=== PATIENT | male | born 2000 | race Hispanic/Latino ===

== ENCOUNTER 2023-11-14 15:41 | Emergency (ER) | payer SELFPAY ==
[2023-11-14 15:45] VITALS: BP 157/94
--- NOTE | 2023-11-14 18:41 | ED.MUSCINJ ---
HPI-Injury
General
Chief Complaint: Musculo-Skeletal Complaint
Source: patient
Exam Limitations: none
Time Seen by Provider: 11/14/23 16:22
Nursing documentation reviewed up to this point in time: agreed with
History of Present Illness-Injury
Is this injury a work related problem?: No
Is pt an associate of [facility]/[place]?: No
Initial Injury comments:
Patient to ED with complaint of left ankle pain. States he injured ankle approx 3 weeks ago while playing soccer. 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 No record found of him being here. He is wearing a
tall orthoboot. Brought self to ED for eval.
Past History
Past History
ED Past Medical History: None
ED Past Surgical History: None
Review of Systems
Review of Systems
Allergies reviewed?: Yes
All Other Systems: ROS reviewed and negative except as documented in HPI and ROS
Constitutional: Reports no symptoms
Musculoskeletal: Reports joint pain (pain to left lat ankle)
Skin: Reports no symptoms
Neurological: Reports no symptoms
Psychiatric: Reports no symptoms
Musculoskeletal Injury Exam
Musculoskeletal Injury Exam
Left Lateral Ankle:
Pain with Movement?: Moderate
Tender to palpation?: Moderate
Soft tissue swelling?: Moderate
External deformity and angulation?: None
Joint effusion?: None
Contusion?: None
Hematoma-local bleeding into tissue?: Moderate
Strain- Sprain- Tear (Connective tissue injury)?: Moderate
Crepitus with movement?: No
Joint instability?: No
Malalignment/deformity?: No
Range of motion: Limited
Distal skin color and temperature: normal-warm & good color
Capillary Refill: normal
Normal distal neurovascular exam?: No
Peripheral Pulses: posterior tibial (left): 3+ and dorsalis pedis (left): 3+
Phy Exam
General Physical Exam
General Presentation: well appearing and no apparent distress
General age: appears stated age
General Skin: warm and dry
General Habitus: normal
General Mental: alert
Musculoskeletal Exam
Musculoskeletal Exam: neuro vasc intact and other (Achilles intact. No tenderness base of 5th, proximal tib/fib)
Skin Exam
Skin Exam: normal color, warm/dry and no rash
Psychiatric Exam
Psychiatric Exam: normal mood/affect
Injury Course
Orders/Labs/Results
Orders:
Orders
11/14/23 17:35
Ankle, left 3 view CR [CR Ankle - Left Min 3 Views ] Urgent
Comment:
Reason For Exam: trauma
*Radiology
Radiology exam reviewed: preliminary read by ED provider (distal fib fx)
*Pulse Oximetry
Patient hypoxic: no
*Critical Care Note
Total Time (30-74mins, 75-104mins- exclusive of procedures): Not Applicable
ED Attending Note
-
Portions of this chart may have been created with voice recognition software.� Occasional wrong word or��sound alike� substitutions may have occurred due to the inherent limitations of voice recognition software.
Discharge Plan
Departure
Patient Disposition: Home (Routine Discharge)
Date of Disposition: 11/14/23
Time of Disposition: 18:45
Patient with high blood pressure during this ER visit?: No
Condition: Good
Covid-19: Not Applicable
Discharge Problem:
Fracture of distal end of fibula
Instructions: Ankle Fracture (DC), Ibuprofen, Walking Boot, Using Cold for Pain
Referrals:
Luis Alberto Murphy MD [Active] - Call in 1-3 days for appt
NONE,* [Family Provider] -
Interventions
Interventions:
*Risk Screen - Suicide Last Done: 11/14/23 15:51
*General Assessment Last Done: 11/14/23 15:51
*Neglect/Abuse Screening Last Done: 11/14/23 15:51
*Nursing Disposition Last Done: 11/14/23 19:23
ED-Musculoskeletal Assessment Last Done: 11/14/23 18:08
Discharge Date and Time
Discharge Date/Time: 11/14/23 19:24
Print Language: VIET[place]ESE
== END 2023-11-14 19:24 | disposition home or self-care (01) ==
LOC: EMR 15:41
PROVIDERS: EMERGENCY PHYSICIAN Emergency Medicine
DX: S82.832A Other fracture of upper and lower end of left fibula, initial encounter for closed fracture (principal); S90.02XA Contusion of left ankle, initial encounter; M25.572 Pain in left ankle and joints of left foot; X58.XXXA Exposure to other specified factors, initial encounter; Y93.66 Activity, soccer
CPT/HCPCS: 99283; 73610

== ENCOUNTER → 2023-12-18 16:09 | Outpatient (REF) | payer OTHER, SELFPAY | LOC: RAD 16:09 | PROVIDERS: ATTENDING PHYSICIAN Orthopaedic Surgery | DX: S82.822A Torus fracture of lower end of left fibula, initial encounter for closed fracture (principal) | CPT/HCPCS: 73610 ==

== ENCOUNTER 2024-01-11 06:16 | Outpatient (RCR) | payer OTHER, SELFPAY | END 2024-01-11 23:59 | disposition home or self-care (01) | LOC: RPT 06:16 | PROVIDERS: ATTENDING PHYSICIAN Orthopaedic Surgery | DX: S82.822D Torus fracture of lower end of left fibula, subsequent encounter for fracture with routine healing (principal); X58.XXXD Exposure to other specified factors, subsequent encounter | CPT/HCPCS: 97110; 97112; 97116; 97163; 97535 ==

== ENCOUNTER → 2024-01-26 09:40 | Outpatient (REF) | payer OTHER, SELFPAY | LOC: CLINIC 09:40 | PROVIDERS: ATTENDING PHYSICIAN Nurse Practitioner Adult Health | DX: S82.822A Torus fracture of lower end of left fibula, initial encounter for closed fracture (principal) | CPT/HCPCS: 73610 ==

== ENCOUNTER 2024-02-08 06:50 | Outpatient (RCR) | payer OTHER, SELFPAY | END 2024-02-08 23:59 | disposition home or self-care (01) | LOC: RPT 06:50 | PROVIDERS: ATTENDING PHYSICIAN Orthopaedic Surgery | DX: S82.822D Torus fracture of lower end of left fibula, subsequent encounter for fracture with routine healing (principal) | CPT/HCPCS: 97010; 97110; 97112; 97140 ==

== ENCOUNTER 2024-02-22 07:36 | Outpatient (RCR) | payer OTHER, SELFPAY | END 2024-02-22 15:08 | disposition home or self-care (01) | LOC: RPT 07:36 | PROVIDERS: ATTENDING PHYSICIAN Orthopaedic Surgery | DX: S82.822A Torus fracture of lower end of left fibula, initial encounter for closed fracture (principal) | CPT/HCPCS: 97110; 97112; 97535 ==